=== PATIENT | female | born 1995 | race Two or more races ===

== ENCOUNTER 2024-09-30 05:40 | Day surgery (SDC) | payer MEDICAID, SELFPAY ==
--- NOTE | 2024-09-26 10:54 | ESHP_ITS ---
RE: LEANN BABB : 1995 DATE OF ADMISSION: 09/30/2024 HISTORY OF PRESENT ILLNESS: This is a 29-year-old 4, para 1-0-3-4 with bilateral adnexal masses, who presents for laparoscopic removal. The patient had an MRI on 06/16/2024 showing complex bilateral adnexal masses. The left ovary contained a cyst measuring 9 x 6 x 9 cm and the right ovary a cyst measuring 9 x 3 x 4.5 cm. Her CA-125 was normal. There is no ascites. Findings are consistent with bilateral adnexal masses. The patient desires future fertility. ALLERGIES: NO KNOWN DRUG ALLERGIES. MEDICATIONS: None. PAST MEDICAL HISTORY: Kidney stones, incompetent cervix, anxiety disorder, recurrent loss. FAMILY HISTORY: Father has diabetes. OBSTETRIC HISTORY: In 2018, 6 weeks spontaneous AB, no D and C. In 2019, 8 weeks spontaneous AB, no D and C. In 2019, 18 weeks spontaneous consistent with incompetent cervix and no D and C. In 05/2020, 23 weeks, delivery, weight 1 pound 4 ounces complicated by premature rupture of membranes and delivery. PAST SURGICAL HISTORY: delivery in 05/2020. PHYSICAL EXAMINATION: VITAL SIGNS: Blood pressure is 122/80, heart rate 88, respirations 18, temperature 98.6. HEENT: Oropharynx and sclerae are clear. LUNGS: Clear to auscultation bilaterally. HEART: Regular rate and rhythm. ABDOMEN: Old lower abdominal scar noted. PELVIC: Deferred. EXTREMITIES: Nontender. SKIN: No gross rashes or lesion. NEUROLOGIC: No focal deficit. ASSESSMENT AND PLAN: Complex bilateral adnexal masses. PLAN: Diagnostic laparoscopy, possible laparotomy, bilateral ovarian cystectomy. Informed consent was obtained. The patient was made aware of the risks, complications, alternatives, benefits of the proposed procedure and she agrees. She is aware of the risk of injury to bowel or bladder, uterus, ureters, adjacent organs, pulmonary embolism, deep vein thrombosis, injury to the vessels of the abdominal wall, hematoma, abscess, wound infection, wound dehiscence, pelvic infection, reoperation, repair, injury to internal organs, anesthesia complications, possibility that a laparotomy needs to be performed to complete the procedure or control bleeding, and the possibility of the procedure is not able to be completed due to severe adhesions or technical difficulties. DT: 09:29:11 TT: 10:53:00 Ref: [id number] - TID: [id number] [facility] SYSTEMRosanne
[2024-09-29 06:53] VITALS: BMI 31.9
--- NOTE | 2024-09-29 07:12 | EKG_ITS ---
[facility] Test Date: 2024-09-29 Pat Name: LEANN BABB Department: Room: - Gender: Female Psychiatric Nursing Aide: IVAN : 1995 Requested By: Pee Hernandez Order Number: [id number] Reading MD: Pee Hernandez Measurements Intervals [place] Rate: 84 P: 53 [place]: 168 QRS: -26 QRSD: 89 T: 32 QT: 344 QTc: 407 Interpretive Statements SINUS RHYTHM BORDERLINE LEFT AXIS DEVIATION Compared to ECG 04/20/2024 01:24:30 Incomplete right bundle-branch block no longer present Myocardial infarct finding no longer present /store/S0/[id number]/ecg/[id number].pdf
[2024-09-29 07:50] LABS: Basophils # (Auto) 0.1 Thou/mm3 (0.0-0.2); Basophils % (Auto) 1 % (0-2.5); Eosinophils # (Auto) 0.1 Thou/mm3 (0.0-0.5); Eosinophils % (Auto) 1 % (0-10); Hematocrit 41.2 % (36.0-46.0); Hemoglobin 13.8 g/dL (12.0-16.0); Immature Granulocytes % (Auto) 0 % (0-0); Immature Granulocytes Auto 0.03 Thou/mm3 (0.00-0.00); Lymphocytes # (Auto) 2.9 Thou/mm3 (1.0-4.8); Lymphocytes % (Auto) 29 % (10-50); Mean Corpuscular HGB Conc 33.5 g/dl (31.0-37.0); Mean Corpuscular Hemoglobin 29.9 pg (25.0-35.0); Mean Corpuscular Volume 89 fL (80-100); Monocytes # (Auto) 0.9 Thou/mm3 (0.0-0.8); Monocytes % (Auto) 9 % (0-12); Neutrophils % (Auto) 61 % (37-80); Nucleated Red Blood Cell % 0 /100 WBC (0); Platelet Count 339 Thou/mm3 (140-440); RDW Standard Deviation 38.7 fL (36.4-46.3); Red Blood Count 4.62 Miln/mm3 (4.00-5.20)
[2024-09-29 08:26] LABS: Alanine Aminotransferase 13 U/L (10-49); Albumin/Globulin Ratio 1.9 (1.2-2.2); Alkaline Phosphatase 70 U/L (46-116); Anion Gap 11 (7-16); Aspartate Amino Transferase 12 U/L (0-34); BUN/Creatinine Ratio 17 Ratio (12-20); Bilirubin,Total 0.6 mg/dL (0.3-1.2); Blood Urea Nitrogen 12 mg/dL (9-23); Calcium 9.8 mg/dL (8.3-10.6); Calcium (Corrected) 9.8 mg/dL (8.5-10.1); Carbon Dioxide 25.9 mMol/L (20.0-31.0); Chloride 103 mMol/L (98-107); Creatinine (Component) 0.7 mg/dL (0.6-1.3); Globulin 2.6 gm/dL (2.3-3.5); Glucose 112 mg/dL (74-106); Osmolality,Calculated 280 (275-295); Potassium 3.7 mMol/L (3.4-5.1); Sodium 140 mMol/L (136-145); Total Protein 7.6 gm/dL (5.7-8.2); eGFR > 60 See Note
[2024-09-29 08:59] LABS: Partial Thromboplastin Time 27.3 Seconds (22.0-36.0); Prothrombin Time 11.1 Seconds (9.0-12.2)
[2024-09-29 18:48] LABS: Beta HCG,Quantitative < 1 mIU/mL (<5.0)
[2024-09-30] VITALS (7 sets, daily range): BP systolic 98–111; BP diastolic 62–83; PULSE 61–90; RESP 12–20; TEMP 36.2–36.9; O2SAT 97–100; BMI 31.8
[2024-09-30] MEDS: RINGERS LACTATED 1000 ML 1,000 ML 30 ML IV (06:27)
--- NOTE | 2024-09-30 07:25 | CHAP ---
Visited briefly with patient giving encouragement and prayer.
--- NOTE | 2024-09-30 08:59 | SUR.PHASEI ---
pt received from OR in recovery bay 5. pt obtunded, breathing unlabored on 8l oxymask, oral airway in place. v/s stable. pt dressing to abd dermabond x3 cdi. report received from Sarah ODONNELL and Jadon LEAL.
[2024-09-30] MEDS: fentaNYL CIT INJ 50 mCg/ML AMP 2ML 25 MCG IV (09:14)
--- NOTE | 2024-09-30 10:10 | SUR.PHASEII ---
pt awake and alert, breathing unlabored on room air. v/s stable. pt dressing to abd dermabond x3 cdi. pt able to ambulate to wheelchair with steady gait. d/c instructions given with Florencio in room, all questions answered. pt d/c via wheelchair with all belongings.
--- NOTE | 2024-10-03 10:17 | ESOP_ITS ---
RE: LEANN VICTORIA : 1995 DATE OF OPERATION: 09/30/2024 PREOPERATIVE DIAGNOSIS: Bilateral ovarian cysts. POSTOPERATIVE DIAGNOSES: Bilateral ovarian cysts. PROCEDURE PERFORMED: Diagnostic laparoscopy and laparoscopic bilateral ovarian cystectomy. SURGEON: Dwayne Hammond DO TIME PIECE REPAIRER: DREW Sebastian ANESTHESIA: General. ANESTHESIOLOGIST: Jin Cisse CRNA ESTIMATED BLOOD LOSS: 30 mL COMPLICATIONS: None. COUNTS: Correct. PATHOLOGY: 1. Left ovarian cyst. 2. Right ovarian cyst. FINDINGS: A left ovarian cyst containing clear yellow fluid with multiple septations with 3 septated cavities containing clear fluid approximately 8 x 9 x 8 cm on the left and a right unilocular anechoic 3 x 3 cm cyst on the right ovary. There was no evidence of endometriosis. There were no pelvic adhesions. Uterus, fallopian tubes appear grossly within normal limits, although the left fallopian tube was firmly adherent to the left ovarian cyst. DESCRIPTION OF PROCEDURE: After appropriate informed consent was obtained and the patient made aware of the risks, complications, alternatives, and benefits of the proposed procedure, she was taken to the operating room where she underwent induction of general anesthesia. She was placed in the dorsal lithotomy position. She was prepped and draped in usual sterile fashion. A timeout was performed. An acorn uterine manipulator was placed. Attention was then turned to the abdomen where the physician re-gowned, gloved and a 5 mm incision was made in the umbilical fold with tending up of the abdomen. A Veress needle was inserted. Saline confirmed intraabdominal placement. An artificial pneumoperitoneum was created to 12 mmHg. The Veress needle was then removed. The 5-mm trocar was inserted with tenting up of the abdomen. The laparoscope connected to video camera was then utilized to visualize the pelvis and the above findings noted. A second incision was made in the midline. Through this 10-mm incision, a 10-mm trocar was inserted under direct visualization of the laparoscope. The incision was approximately 2 cm above the symphysis pubis. Using a blunt probe, the pelvis was visualized. The above findings noted. A second incision was made in the left lower quadrant, through this 5-mm incision, a 5 mm trocar was inserted under direct visualization of the laparoscope. Using the Haque Geck grasper and the Harmonic scalpel 1136 del, the left ovarian cystectomy was performed and specimen was removed through the Endopouch. Attention was then turned to the right ovarian cyst, which was grasped with the Haque Geck grasper and using the Harmonic scalpel, the right ovarian cystectomy was performed. The specimen was removed through the 10-mm trocar without difficulty and there was no bleeding at the end of the procedure. Using the Sarthak-Margy needle, the 0 Vicryl suture was used to close the suprapubic fascia and the carbon dioxide was removed from the peritoneal cavity as the trocars were removed. The incisions were closed with 4-0 Monocryl and covered with Dermabond. Prior to that, each incision was infiltrated with Marcaine 0.5% with epinephrine. Attention was then turned to the vagina where the uterine manipulator was removed. There was no bleeding in the vagina at the end of the procedure. She was reversed from general anesthesia in the supine position and transferred to the recovery room in stable condition. She tolerated the procedure well. Counts were correct. I discussed with her mother, Sarah, the intraoperative findings, expectation for recovery. All questions answered. DT: 09::26 TT: 16:01:00 Ref: [id number] - TID: [id number]
== END 2024-09-30 10:10 | disposition home or self-care (01) ==
PROVIDERS: PCP Nurse Practitioner Family; Referring Provider Specialist; Visit Provider Specialist
PROC: (CPT 58662; principal; 2024-09-30 07:30)
DX: D27.1 Benign neoplasm of left ovary (principal); N83.11 Corpus luteum cyst of right ovary; Z87.442 Personal history of urinary calculi; Z01.810 Encounter for preprocedural cardiovascular examination
CPT/HCPCS: 58662; 36415; 80053; 84702; 85025; 85610; 85730; 86850; 86900; 86901; 93005; A4217; A4649; J0690; J2250; J2371; J2405; J2704; J2765; J3010; J3490; J7120; J1805

== ENCOUNTER 2025-01-15 09:05 | Day surgery (SDC) | payer MEDICAID, SELFPAY ==
[2025-01-13 13:37] LABS: HCG Qualitative,Urine Negative
[2025-01-14 14:14] VITALS: BMI 33.3
[2025-01-15] VITALS (12 sets, daily range): BP systolic 101–127; BP diastolic 55–84; PULSE 74–101; RESP 13–99; TEMP 36.8–37; O2SAT 95–100; BMI 33.3
[2025-01-15] MEDS: RINGERS LACTATED 1000 ML 1,000 ML 125 ML IV (12:16)
[2025-01-15] MEDS: MIDAZOLAM INJ 1 MG/ML VIAL 2 ML 2 MG IV (12:16)
[2025-01-15] MEDS: fentaNYL CIT INJ 50 mCg/ML AMP 2ML IV (12:17)
[2025-01-15] MEDS: DiphenhydrAMINE INJ 50 MG/ML VIAL 25 MG IV (12:20)
--- NOTE | 2025-01-15 12:23 | SUR.PHASEII ---
1223: received pt from OR via [employer]. received report from ELVIS Barragan. pt awake and alert. no s/s of resp. distress or discomfort. no s/s of pain or discomfort.
--- NOTE | 2025-01-15 12:33 | SUR.PHASEII ---
1233:received pt from OR via [employer]. received report from ELVIS Barragan. pt awake and alert. no s/s of resp. distress or discomfort. no s/s of pain or discomfort.
--- NOTE | 2025-01-15 12:35 | SUR.PHASEII ---
1233: pt drinking water without any issues
--- NOTE | 2025-01-15 12:51 | SUR.PHASEII ---
1251: ambulate to bathroom with assist without any difficulty.
--- NOTE | 2025-01-15 13:03 | SUR.PHASEII ---
1303: pt ready for discharge, sitting down in the wheelchair waiting for her transportation.
--- NOTE | 2025-01-15 13:23 | SUR.PHASEII ---
1323: pt discharge to home via wheelchair. pt alert and oriented to name, place and time. no s/s of resp. distress or discomfort. no c/o pain or discomfort. discharge instructions given to Florencio- and pt, verbalizes understanding. all belongings brought given back to patient.
== END 2025-01-15 13:23 | disposition home or self-care (01) ==
PROVIDERS: PCP Nurse Practitioner Family; Referring Provider Internal Medicine Gastroenterology; Visit Provider Internal Medicine Gastroenterology
PROC: 0DBE8ZX Excision of Large Intestine, Via Natural or Artificial Opening Endoscopic, Diagnostic (ICD-10-PCS; CPT 45380; principal; 2025-01-15 09:00)
DX: K57.31 Diverticulosis of large intestine without perforation or abscess with bleeding (principal); K64.8 Other hemorrhoids
CPT/HCPCS: 45380; 81025; A4649; J1200; J2250; J3010; J7120

== ENCOUNTER 2025-01-20 07:40 | Day surgery (SDC) | payer MEDICAID, SELFPAY ==
[2025-01-20] VITALS (9 sets, daily range): BP systolic 95–128; BP diastolic 64–96; PULSE 56–87; RESP 13–24; TEMP 36.3–36.5; O2SAT 92–100; BMI 33.6
[2025-01-20 08:22] LABS: HCG Qualitative,Urine Negative
[2025-01-20] MEDS: MIDAZOLAM INJ 1 MG/ML VIAL 2 ML (ASD USE ONLY) 2 MG IV (09:50)
[2025-01-20] MEDS: RINGERS LACTATED 1000 ML 1,000 ML 125 ML IV (09:50)
[2025-01-20] MEDS: fentaNYL CIT INJ 50 mCg/ML AMP 2ML (ASD USE ONLY) IV (09:51)
[2025-01-20] MEDS: DiphenhydrAMINE INJ 50 MG/ML VIAL 25 MG IV (09:52)
== END 2025-01-20 09:45 | disposition home or self-care (01) ==
PROVIDERS: PCP Nurse Practitioner Family; Referring Provider Internal Medicine Gastroenterology; Visit Provider Internal Medicine Gastroenterology
PROC: (CPT 43239; principal; 2025-01-20 07:30)
DX: K29.70 Gastritis, unspecified, without bleeding (principal); K44.9 Diaphragmatic hernia without obstruction or gangrene; K31.4 Gastric diverticulum; K63.89 Other specified diseases of intestine
CPT/HCPCS: 43239; 81025; A4649; J1200; J2250; J3010; J7120

== ENCOUNTER → 2025-04-01 | Outpatient (CLI) | payer MEDICAID, SELFPAY ==
--- NOTE | 2025-04-01 14:00 | XR_ITS ---
Examination: Transvaginal ultrasound of the pelvis, complete Technique: Transvaginal sonographic images pelvis performed using warner scale imaging Exam date and time: April 01, 2025 1428 hours INDICATIONS: Irregular menses 3 months FINDINGS: Uterus 7.3 cm endometrial stripe 0.5 cm No uterine mass or intrauterine gestation Right ovary 4.3 cm arterial flow follicular cysts, the largest 18 mm Left ovary 8.2 cm arterial flow multiple cysts including septated cyst 5.5 x 2.3 x 3.9 cm and complex cyst with internal echoes 4.5 x 2.6 x 2.6 cm IMPRESSION: No uterine mass or intrauterine gestation Complex left ovarian cysts as above, recommend 3-6 month follow-up pelvic sonography.
--- NOTE | 2025-04-01 14:00 | XR_ITS ---
Examination: Pelvic ultrasound, transabdominal, complete Technique: Transabdominal ultrasound of the pelvis performed using grayscale imaging Date and time of exam: April 01, 2025 1617 hours INDICATIONS: Irregular menses months FINDINGS: Uterus 7.7 cm endometrial stripe 0.3 cm No uterine mass or intrauterine gestation Ovaries obscured by bowel gas IMPRESSION: Limited study No uterine mass or intrauterine gestation
== END | disposition home or self-care (01) ==
LOC: CDIM 13:59
PROVIDERS: PCP Nurse Practitioner Family; Referring Provider Nurse Practitioner Family; Visit Provider Nurse Practitioner Family
DX: N83.01 Follicular cyst of right ovary (principal); N83.202 Unspecified ovarian cyst, left side
CPT/HCPCS: 76830; 76856

== ENCOUNTER → 2025-08-25 | Outpatient (CLI) | payer MEDICAID, SELFPAY ==
--- NOTE | 2025-08-25 09:15 | XR_ITS ---
Examination: Abdomen sonogram, Limited Date and time of exam: August 25, 2025, 1004 hours INDICATIONS: Fatty liver diagnosis April 30, 2024 Technique: Real-time warner scale transabdominal sonographic images of the upper abdomen obtained. Findings: Multiple gallstones Normal gallbladder wall 0.3 cm Common bile duct 0.2 cm Pancreatic head 2.3 cm Liver 17.9 cm fatty infiltration Normal hepatopetal portal venous flow Patent IVC IMPRESSION: Cholelithiasis, negative for cholecystitis Normal common bile duct Moderate hepatomegaly fatty infiltration no focal liver lesions
== END | disposition home or self-care (01) ==
PROVIDERS: PCP Family Medicine; Referring Provider Nurse Practitioner Family; Visit Provider Nurse Practitioner Family
DX: K80.20 Calculus of gallbladder without cholecystitis without obstruction (principal); K76.0 Fatty (change of) liver, not elsewhere classified
CPT/HCPCS: 76705